=== PATIENT | male | born 1985 | race African-American/Black ===

== ENCOUNTER 2017-01-28 21:08 | Emergency (ER) | payer OTHER, MEDICAID ==
[2017-01-28 21:41] LABS: ABSOLUTE EOSINOPHILS # (AUTO) 0.2 10^3/uL (0.0-0.6); ABSOLUTE LYMPHOCYTES (AUTO) 2.2 10^3/uL (0.5-4.7); ABSOLUTE MONOCYTES (AUTO) 0.9 10^3/uL (0.1-1.4); ABSOLUTE NEUT (AUTO) 5.1 10^3/uL (1.7-8.2); BASOPHILS % (AUTO) 0.6 % (0-2); EOSINOPHILS % (AUTO) 1.9 % (0-6); HEMATOCRIT 40.5 % (37.9-51.0); HEMOGLOBIN 12.8 g/dL (13.5-17.0); HGB HCT DIFFERENCE -2.1; LYMPHOCYTES % (AUTO) 26.5 % (13-45); MEAN CORPUSCULAR HGB CONC 31.6 g/dL (32.0-36.0); MEAN CORPUSCULAR VOLUME 76 fl (80-97); MONOCYTES % (AUTO) 10.6 % (3-13); RED BLOOD COUNT 5.33 10^6/uL (4.35-5.55); RED CELL DISTRIBUTION WIDTH 12.9 % (11.5-14.0); SEGMENTED NEUTROPHILS % (AUTO) 60.4 % (42-78); WHITE BLOOD COUNT 8.5 10^3/uL (4.0-10.5)
[2017-01-28 22:03] LABS: ALANINE AMINOTRANSFERASE 87 U/L (21-72); ALKALINE PHOSPHATASE 69 U/L (38-126); ANION GAP 7 (5-19); ASPARTATE AMINO TRANSFERASE 52 U/L (17-59); BILIRUBIN,DIRECT 0.2 mg/dL (0.0-0.4); BILIRUBIN,TOTAL 0.3 mg/dL (0.2-1.3); BLOOD UREA NITROGEN 9 mg/dL (7-20); CARBON DIOXIDE 27 mmol/L (22-30); CHLORIDE 106 mmol/L (98-107); CREATININE RESULT 0.97 mg/dL (0.52-1.25); GLUCOSE 95 mg/dL (75-110); POTASSIUM 4.1 mmol/L (3.6-5.0); SODIUM 140.4 mmol/L (137-145); TOTAL PROTEIN 6.6 g/dL (6.3-8.2)
[2017-01-28 22:04] LABS: ALCOHOL < 10 mg/dL (NONE DETECTED)
--- NOTE | 2017-01-28 22:41 | ER Document Report ---
ED Psych Disorder / Suicide - General Chief Complaint: Psych Problem Stated Complaint: POSSIBLE IVC Time Seen by Provider: 01/28/17 21:13 Mode of Arrival: Ambulatory Information source: Patient TRAVEL OUTSIDE OF THE [place] IN LAST 30 DAYS: No - HPI Patient complains to provider of: Suicidal ideation Onset: Just prior to arrival Onset was: Sudden Quality of pain: No pain Suicide Risk Factors: Lack of social support, Male Situational problems related to: Significant other Associated symptoms: Depressed Notes: Is a 31-year-old male with a history of depression who presents to the emergency room via law enforcement and IVC paperwork stating that he is suicidal , attempted to overdose, held a knife to his throat and made statements that he would end his life if he found out his aunt , emergency room patient denies being suicidal, states he has no plan to harm himself and has never done so in the past, he states that he made those statements to the field irrigation worker because he was "venting", he adamantly denies being suicidal, states he has no plan to end his life, he does note that he had an argument with his girlfriend throughout the day today too, she is at bedside during my evaluation with patient's permission, patient reports that he is seen at the [facility], he has an appointment on the first for a medication check, but he does not currently participate in active therapy or counseling, he does admit to feeling overwhelmed and a lack of social support, reports that he spoke with his aunt on the phone earlier today and she is not doing so well healthwise so he is concerned because he is quite close to her patient denies medication noncompliance - Related Data Allergies/Adverse Reactions: No Known Allergies Allergy (Unverified 01/28/17 21:47) Home Medications: Current Home Medications Dextroamphetamine/Amphetamine [Dextroamp-Amphetamin 20 mg Tab] 20 mg PO BID [History] Past Medical History - General Information source: Patient - Social History Smoking Status: Never Smoker Chew tobacco use (# tins/day): No Frequency of alcohol use: None Drug Abuse: None Family History: Reviewed & Not Pertinent, CVA - stroke. denies: Arthritis, CAD , DM, Hyperlipidemia, Hypertension - Past Medical History Cardiac Medical History: Denies: Hx Coronary Artery Disease, Hx Heart Attack, Hx Hypertension Pulmonary Medical History: Denies: Hx Asthma, Hx Bronchitis, Hx COPD, Hx Pneumonia, Hx Tuberculosis Neurological Medical History: Denies: Hx Cerebrovascular Accident, Hx Seizures Musculoskeltal Medical History: Denies Hx Arthritis Psychiatric Medical History: Reports: Hx Bipolar Disorder, Hx Depression, Hx Schizoaffective Disorder Past Surgical History: Reports: Hx Oral Surgery - Jaw surgery. Denies: Hx Pacemaker - Immunizations Immunizations up to date: Yes Hx Diphtheria, Pertussis, Tetanus Vaccination: Yes Review of Systems - Review of Systems Constitutional: No symptoms reported EENT: No symptoms reported Cardiovascular: No symptoms reported Respiratory: No symptoms reported Gastrointestinal: No symptoms reported Genitourinary: No symptoms reported Male Genitourinary: No symptoms reported Musculoskeletal: No symptoms reported Skin: No symptoms reported Hematologic/Lymphatic: No symptoms reported Neurological/Psychological: See HPI -: Yes All other systems reviewed and negative Physical Exam - Vital signs Vitals: Resp 18 01/28/17 21:47 Interpretation: Normal - General General appearance: Appears well, Alert - HEENT Head: Normocephalic, Atraumatic Eyes: Normal Pupils: PERRL - Respiratory Respiratory status: No respiratory distress Chest status: Nontender Breath sounds: Normal Chest palpation: Normal - Cardiovascular Rhythm: Regular Heart sounds: Normal auscultation Murmur: No - Abdominal Inspection: Normal Distension: No distension Bowel sounds: Normal Tenderness: Nontender Organomegaly: No organomegaly - Back Back: Normal, Nontender - Extremities General upper extremity: Normal inspection, Nontender, Normal color, Normal ROM , Normal temperature General lower extremity: Normal inspection, Nontender, Normal color, Normal ROM , Normal temperature, Normal weight bearing. No: Anna's sign - Neurological Neuro grossly intact: Yes Cognition: Normal Orientation: AAOx4 Shelton Coma Scale Eye Opening: Spontaneous Graeme Coma Scale Verbal: Oriented Shelton Coma Scale Motor: Obeys Commands Shelton Coma Scale Total: 15 Speech: Normal Motor strength normal: LUE, RUE, LLE, RLE Sensory: Normal - Psychological Associated symptoms: Normal affect, Normal mood - Skin Skin Temperature: Warm Skin Moisture: Dry Skin Color: Normal Course - Re-evaluation Re-evalutation: 01/28/17 23:08 Girlfriend Kellen At bedside, treatment plan options were discussed with patient and girlfriend Kellen at bedside, patient adamantly denies being suicidal, his girlfriend Kellen states that she feels as though this was an attention seeking behavior because they have been fighting all day, she does not feel as though patient is suicidal and has been concerned that he would harm himself, patient is currently in a treatment program at [facility] but does not receive counseling, I offered to allow him to remain in the emergency room for the night to speak with the mental health team in the morning for resources, however he continues to deny being suicidal and states he feels safe going home , therefore I do not believe patient meets criteria for involuntary commitment, IVC will be rescinded and patient will be discharged home with instructions for follow-up, he was advised to follow-up with [facility] first thing in the morning or return if symptoms worsen, patient and girlfriend acknowledge understanding and agreement with this plan - Vital Signs Vital signs: Temp Pulse Resp BP Pulse Ox 97.7 F 60 18 113/61 92 01/28/17 22:13 01/28/17 23:11 01/28/17 21:47 01/28/17 23:11 01/28/17 23:11 - Laboratory Result Diagrams: 01/28/17 21:33 01/28/17 21:33 Laboratory results interpreted by me: 01/28/17 01/28/17 21:33 21:33 Hgb 12.8 L MCV 76 L MCH 24.0 L MCHC 31.6 L ALT 87 H Salicylates < 1.0 L Acetaminophen < 10 L Discharge - Discharge Clinical Impression: Depression Qualifiers: Depression Type: unspecified Qualified Code(s): F32.9 - Major depressive disorder, single episode, unspecified Condition: Stable Disposition: HOME, SELF-CARE Instructions: Depression ([facility]) Additional Instructions: Follow-up with the [facility] first thing in the morning, talk to them about getting counseling or therapy for your depression. Return to the emergency room immediately if symptoms worsen or any additional concerns.
[2017-01-28 23:13] VITALS: BP 113/61
--- NOTE | 2017-01-29 09:59 | EKG REPORT ---
SEVERITY:- NORMAL ECG - SINUS RHYTHM : Confirmed by: Juan Hinson 29-Jan-2017 09:59:27
== END 2017-01-28 23:22 | disposition home or self-care (01) ==
LOC: ER 21:08
DX: F32.9 Major depressive disorder, single episode, unspecified (principal); Z79.899 Other long term (current) drug therapy
CPT/HCPCS: 36415; 80053; 80307; 85025; 93005; 93010; 99284

== ENCOUNTER 2019-03-12 08:29 | Emergency (ER) | payer MEDICAID, OTHER ==
[2019-03-12 08:37] VITALS: BP 129/70
[2019-03-12] MEDS ORDERED: LIDOCAINE 1% INJ-PF (10 MG/ML) 30 ML SDV INJ ONE (09:13)
--- NOTE | 2019-03-12 09:18 | ER Document Report ---
HPI - HPI Time Seen by Provider: 03/12/19 09:08 Pain Level: 1 Context: Patient is a 33-year-old male who presents to the emergency department with a chief complaint of a possible abscess to his right upper back. Patient states that he noticed a bump there a few months ago which did not bother him but about 2 weeks ago he started to have pain. He states that his significant other did attempt to pop the pimple which did express some white drainage last week. Patient states that since then it has become more tender. Patient states is worse when he attempts to lay on his back and puts pressure over the area. Patient states it is gotten slightly larger. Patient states he does have a history of similar bumps that pop up throughout his body that look like pimples but usually when he pops them and cleans them with peroxide they go away on their own. Denies fever or any other complaints. Patient states it has not been draining since his significant other popped it. - CONSTITUTIONAL Constitutional: DENIES: Fever, Chills - EENT EENT: DENIES: Sore Throat, Ear Pain, Eye problems - NEURO Neurology: DENIES: Headache, Weakness, Vision blurred, Dizzinesss / Vertigo - CARDIOVASCULAR Cardiovascular: DENIES: Chest pain - RESPIRATORY Respiratory: DENIES: Trouble Breathing, Coughing - GASTROINTESTINAL Gastrointestinal: DENIES: Abdominal Pain, Black / Bloody Stools - URINARY Urinary: DENIES: Dysuria, Urgency, Frequency - REPRODUCTIVE Reproductive: DENIES: : - MUSCULOSKELETAL Musculoskeletal: DENIES: Extremity pain Past Medical History - General Information source: Patient - Social History Smoking Status: Never Smoker Chew tobacco use (# tins/day): No Frequency of alcohol use: None Drug Abuse: None Family History: Reviewed & Not Pertinent, CVA - stroke. denies: Arthritis, CAD, DM, Hyperlipidemia, Hypertension Patient has suicidal ideation: No Patient has homicidal ideation: No - Past Medical History Cardiac Medical History: Reports: None Denies: Hx Coronary Artery Disease, Hx Heart Attack, Hx Hypertension Pulmonary Medical History: Reports: None Denies: Hx Asthma, Hx Bronchitis, Hx COPD, Hx Pneumonia, Hx Tuberculosis EENT Medical History: Reports: None Neurological Medical History: Reports: None. Denies: Hx Cerebrovascular Accident, Hx Seizures Endocrine Medical History: Reports: None Renal/ Medical History: Reports: None. Denies: Hx Peritoneal Dialysis Malignancy Medical History: Reports None GI Medical History: Reports: None Musculoskeletal Medical History: Reports None, Denies Hx Arthritis Skin Medical History: Reports None Psychiatric Medical History: Reports: Hx Bipolar Disorder, Hx Depression, Hx Schizoaffective Disorder Traumatic Medical History: Reports: None Infectious Medical History: Reports: None Past Surgical History: Reports: Hx Oral Surgery - Jaw surgery. Denies: Hx Pacemaker - Immunizations Immunizations up to date: Yes Hx Diphtheria, Pertussis, Tetanus Vaccination: Yes Vertical Provider Document - CONSTITUTIONAL Agree With Documented VS: Yes Exam Limitations: No Limitations General Appearance: No Apparent Distress Notes: GENERAL: Well-appearing, well-nourished and in no acute distress. HEAD: Atraumatic, normocephalic. EYES: Pupils equal round and reactive to light, extraocular movements intact, sclera anicteric, conjunctiva are normal. ENT: Nares patent, oropharynx clear without exudates. Moist mucous membranes. NECK: Normal range of motion, supple without lymphadenopathy or JVD. LUNGS: Breath sounds clear to auscultation bilaterally and equal. No wheezes rales or rhonchi. HEART: Regular rate and rhythm without murmurs, rubs or gallops. ABDOMEN: Soft, nontender, normoactive bowel sounds. No guarding, no rebound. No masses appreciated. BACK: No cervical, thoracic, lumbar midline tenderness. No saddle anesthesia, normal distal neurovascular exam. [id number] erythematous, firm raised area located on the upper back right of the thoracic spine. No drainage. GENITOURINARY: Deferred. EXTREMITIES: Normal range of motion, no pitting or edema. No clubbing or cyanosis. NEUROLOGICAL: Cranial nerves II through XII grossly intact. Normal speech, normal gait. PSYCH: Normal mood, normal affect. SKIN: Warm, Dry, normal turgor, no rashes or lesions noted. - INFECTION CONTROL TRAVEL OUTSIDE OF THE [place] IN LAST 30 DAYS: No - DERM Adult Front & Back Diagram: 1 - [id number] raised erythematous tender firm area. Course - Vital Signs Vital signs: Temp Pulse Resp BP Pulse Ox 97.8 F 64 16 129/70 H 99 03/12/19 08:36 03/12/19 08:36 03/12/19 08:36 03/12/19 08:36 03/12/19 08:36 Procedures - Incision and Drainage Right Upper Back Time completed: 09:45 Type: Simple Anesthetic type: 1% Lidocaine mL's of anesthetic: 3 Blade size: 11 I&D procedure: Betadine prep applied, Shurclens applied Incision Method: Incision made by scalpel Notes: 03/12/19 09:52 Small amount of purulent drainage and blood drained from abscess. Adult Front & Back picture: 1 - [id number] abscess Discharge - Discharge Clinical Impression: Abscess Condition: Stable Disposition: HOME, SELF-CARE Additional Instructions: You were seen in the emergency department for an abscess. The abscess was numbed and drained appropriately. Please take your antibiotics as prescribed. The will continue to drain over the next few days. Please keep this clean dry and covered with the gauze that we have provided for you at discharge. Please return the emergency department for fever, chills, worsening pain or increasing swelling to the area. The wound will heal on its own. Use warm compresses to the area. Abscess You have an abscess (boil). This a pus-forming infection, usually due to staph. Some boils may be left to drain on their own, but most require lancing. From the time the tender lump first appears, it may be three or four days before the abscess is ready to rick. Local heat and rest help at this stage of treatment. An antibiotic may prevent spread of the infection. Once the abscess is opened, packing may be placed into it. This is done so pus is not sealed inside by premature closure of the cavity. The packing will be removed at your follow-up visit or you may be advised to remove it yourself at home. Sometimes this packing must be replaced a few times during healing. The wound will heal with surprisingly little scar. Depending on the size and location of an abscess, healing can take one to four weeks. You may shower and wash the area around the incision site two or three times a day. Antibiotics may be prescribed, but are usually not necessary after an abscess has been drained. If you develop fever, chilling, worsening pain, or increasing swelling in the area, call the doctor or return immediately. Prescriptions: Cephalexin Monohydrate [Keflex 500 mg Capsule] 500 mg PO Q6H 7 Days capsule
[2019-03-12] MEDS ORDERED: CEPHALEXIN 500 MG CAPSULE PO ONE (09:54)
== END 2019-03-12 10:01 | disposition home or self-care (01) ==
LOC: ER 08:29
DX: L02.212 Cutaneous abscess of back [any part, except buttock and flank] (principal)
CPT/HCPCS: 10060; 99283; J3490